=== PATIENT | female | born 1970 | race American Indian/Alaskan Native ===

== ENCOUNTER 2021-04-14 10:49 | Observation (INO) | payer BC ==
[2021-04-14 13:45] LABS: Basophils # (Auto) 0.1 K/mm3 (0.0-0.1); Basophils % (Auto) 2.1 % (0.0-1.8); Eosinophils # (Auto) 0.2 K/mm3 (0.0-0.4); Eosinophils % (Auto) 3.1 % (0.0-4.3); Lymphocytes # (Auto) 2.2 K/mm3 (1.2-5.4); Lymphocytes % (Auto) 43.6 % (13.4-35.0); Mean Corpuscular HGB Conc 28 % (30-34); Mean Corpuscular Volume 75 fl (79-97); Monocytes # (Auto) 0.5 K/mm3 (0.0-0.8); Monocytes % (Auto) 9.2 % (0.0-7.3); Platelet Count 313 K/mm3 (140-440); Red Blood Count 2.86 M/mm3 (3.65-5.03)
[2021-04-14 13:47] LABS: Hematocrit 21.3 % (30.3-42.9); Hemoglobin 6.1 gm/dl (10.1-14.3); Red Cell Distribution Width 21.4 % (13.2-15.2)
[2021-04-14 14:01] LABS: Albumin 4.2 g/dL (3.9-5); Blood Urea Nitrogen 8 mg/dL (7-17); Calcium 8.6 mg/dL (8.4-10.2); Hemolysis Index 4
[2021-04-14 14:04] LABS: Alanine Aminotransferase < 5 units/L (7-56); BUN/Creatinine Ratio 16
[2021-04-14] MEDS ORDERED: SODIUM CHLORIDE 0.9% 500 ML 500 ML IV ONE (17:34)
--- NOTE | 2021-04-14 17:48 | Emergency Department Report ---
ED General Adult HPI - General Chief complaint: Medical Clearance Stated complaint: BLOOD WORK Time Seen by Provider: 04/14/21 17:32 Source: patient Mode of arrival: Ambulatory Limitations: No Limitations - History of Present Illness Initial comments: Patient is a 50-year-old F [place] Citizen female who is presenting with paperwork from her doctor's office that her hemoglobin was low. Patient does have a history of heavy menses but is not bleeding at this time. Patient saw her doctor for dizziness. Blood work was done and she was called to come to the emergency department for blood transfusion. She denies any shortness of breath chest pain focal neurological deficits abdominal pain at this time. - Related Data Allergies Allergy/AdvReac Type Severity Reaction Status Date / Time No Known Allergies Allergy Unverified 04/14/21 10:55 ED Review of Systems ROS: Stated complaint: BLOOD WORK Other details as noted in HPI Comment: All other systems reviewed and negative ED Past Medical Hx - Past Medical History Previous Medical History?: No - Surgical History Past Surgical History?: Yes Additional Surgical History: TL, feet ED Physical Exam - General Limitations: No Limitations General appearance: alert, in no apparent distress - Head Head exam: Present: atraumatic, normocephalic - Eye Eye exam: Present: normal appearance, PERRL, EOMI - ENT ENT exam: Present: normal orophraynx, mucous membranes moist - Neck Neck exam: Present: normal inspection - Respiratory Respiratory exam: Present: normal lung sounds bilaterally. Absent: respiratory distress, wheezes, rales, rhonchi - Cardiovascular Cardiovascular Exam: Present: regular rate, normal rhythm, normal heart sounds. Absent: systolic murmur, diastolic murmur, rubs, gallop - GI/Abdominal GI/Abdominal exam: Present: soft, normal bowel sounds. Absent: distended, tenderness, guarding, rebound - Extremities Exam Extremities exam: Present: normal inspection - Back Exam Back exam: Present: normal inspection - Neurological Exam Neurological exam: Present: alert, oriented X3 - Psychiatric Psychiatric exam: Present: normal affect, normal mood - Skin Skin exam: Present: warm, dry, intact, normal color. Absent: rash ED Course Vital Signs 04/14/21 10:56 Pulse Rate 68 Respiratory 18 Rate Blood Pressure 105/51 O2 Sat by Pulse 100 Oximetry ED Medical Decision Making - Lab Data Result diagrams: 04/14/21 13:04 04/14/21 13:04 - Medical Decision Making Patient is a 50-year-old F [place] Citizen female who is presenting from her primary care physician for need for blood transfusion. Patient's symptoms anemia just dizziness for the last several days. Has a history of heavy menses but not having any bleeding at this time. Patient be admitted for observation and will be transfused. Critical Care Time: Yes (30) Critical care attestation.: If time is entered above; I have spent that time in minutes in the direct care of this critically ill patient, excluding procedure time. ED Disposition Clinical Impression: Symptomatic anemia Disposition: OP ADMIT IP TO THIS HOSP Is pt being admited?: Yes Does the pt Need Aspirin: No Condition: Stable Time of Disposition: 17:48
[2021-04-14] MEDS ORDERED: ACETAMINOPHEN 325 MG TAB PO PRN (19:17)
[2021-04-14] MEDS ORDERED: ALBUTEROL 2.5 MG/3 ML NEBU IH PRN (19:17)
[2021-04-14] MEDS ORDERED: oxyCODONE /ACETAMINOPHEN 5-325MG TAB PO PRN (19:17)
[2021-04-14] MEDS ORDERED: HYDROmorphone 1 MG/1 ML INJ IV PRN (19:17)
[2021-04-14] MEDS ORDERED: ONDANSETRON 4 MG/2 ML INJ IV PRN (19:17)
[2021-04-14] MEDS ORDERED: SODIUM CHLORIDE 0.9% 500 ML 500 ML IV NR (19:18)
--- NOTE | 2021-04-14 19:20 | History and Physical Report ---
History of Present Illness Chief complaint: My blood level is low History of present illness: 50 YO Female with Menorrhagia presents to ED for evaluation. Patient reports "my blood level is low". Patient states that she has experienced generalized weakness, dizziness over the past 1 month with persistent symptoms over the same timeframe. Patient was seen and evaluated by her primary care physician and was found to have a hemoglobin of 6. Patient was instructed to seek further care at [facility]. Patient transported to [facility] via private vehicle for further care and evaluation of the aforementioned symptoms. The patient was seen and evaluated in the emergency department. All lab and imaging studies reviewed. Patient found to have him symptomatic anemia secondary to menorrhagia. Patient placed in observation status and admitted to medical floor. Patient treated with packed red blood cell transfusion as well as initiation of iron therapy. Patient denies fever, chills, chest pain, pal pitation, productive cough, skin rash, recent ill contacts, or known exposure to COVID-19. No prior admission for review. No medication listed at time of admission reconciliation. Past History Past Medical History: other (See HPI) Past Surgical History: Other (TL, feet) Social history: single. denies: smoking, alcohol abuse, prescription drug abuse Family history: hypertension Medications and Allergies Allergies Allergy/AdvReac Type Severity Reaction Status Date / Time No Known Allergies Allergy Verified 04/14/21 18:22 Home Medications Medication Instructions Recorded Confirmed Last Taken Type Azo Cranberry 1,000 mg PO DAILY 04/14/21 04/14/21 2 Days Ago History ~04/12/21 Vitamin B-12 1,000 mcg PO DAILY 04/14/21 04/14/21 2 Days Ago History ~04/12/21 Active Meds: Active Medications Acetaminophen (Acetaminophen 325 Mg Tab) 650 mg PO Q4H PRN PRN Reason: Pain MILD(1-3)/Fever >100.5/MENCHACA Albuterol (Albuterol 2.5 Mg/3 Ml Nebu) 2.5 mg IH Q4HRT PRN PRN Reason: Shortness Of Breath Ferrous Sulfate (Ferrous Sulfate 325 Mg Tab) 325 mg PO BID TEVIN Hydromorphone HCl (Hydromorphone 1 Mg/1 Ml Inj) 0.5 mg IV Q12H PRN PRN Reason: Pain , Severe (7-10) Sodium Chloride (Nacl 0.9% 500 Ml) 500 mls @ 0 mls/hr IV ONCE ONE Stop: 04/14/21 19:19 Miscellaneous Medication (Azo Cranberry) 1,000 mg PO DAILY [facility] Miscellaneous Medication (Vitamin B-12) 1,000 mcg PO DAILY [facility] Ondansetron HCl (Ondansetron 4 Mg/2 Ml Inj) 4 mg IV Q8H PRN PRN Reason: Nausea And Vomiting Oxycodone/Acetaminophen (Oxycodone /Acetaminophen 5-325mg Tab) 1 tab PO Q12H PRN PRN Reason: Pain, Moderate (4-6) Sodium Chloride (Sodium Chloride 0.9% 10 Ml Flush Syringe) 10 ml IV BID TEVIN Sodium Chloride (Sodium Chloride 0.9% 10 Ml Flush Syringe) 10 ml IV PRN PRN PRN Reason: LINE FLUSH Review of Systems Constitutional: weakness, no fever, no chills Ears, nose, mouth and throat: no ear pain, no ear discharge, no decreased hearing, no nose pain, no nasal congestion, no nasal discharge Breasts: no change in shape, no swelling, no mass Cardiovascular: lightheadedness, no chest pain, no orthopnea, no edema, no syncope Respiratory: no cough, no hemoptysis, no shortness of breath, no dyspnea on exertion Gastrointestinal: no abdominal pain, no nausea, no vomiting, no diarrhea, no constipation Genitourinary Female: menorrhagia, no pelvic pain, no flank pain, no dysuria, no urgency Rectal: no pain, no incontinence, no bleeding Musculoskeletal: no neck stiffness, no neck pain, no shooting arm pain, no arm numbness/tingling, no low back pain, no shooting leg pain, no leg numbness/tingling Integumentary: no rash, no pruritis, no sores, no jaundice, no boils Neurological: no head injury, no paralysis, no weakness, no parathesias, no numbness, no tingling, no syncope Psychiatric: no anxiety, no memory loss, no sleep disturbances, no hypersomnia, no change in appetite Endocrine: no cold intolerance, no heat intolerance, no polydipsia, no nocturia Hematologic/Lymphatic: no easy bruising, no easy bleeding, no lymphedema Allergic/Immunologic: no wheezing, no persistent infections, no anaphylaxis, no angioedema Exam - Constitutional Vitals: Temp Pulse Resp BP Pulse Ox 59 L 13 100/54 100 04/14/21 19:15 04/14/21 19:15 04/14/21 19:15 04/14/21 19:15 General appearance: Present: mild distress - EENT Eyes: Present: PERRL ENT: hearing intact, clear oral mucosa, other (Conjunctival pallor) - Neck Neck: Present: supple, normal ROM - Respiratory Respiratory effort: normal Respiratory: bilateral: CTA - Cardiovascular Heart Sounds: Present: S1 & S2. Absent: rub, click - Extremities Extremities: pulses symmetrical, No edema Peripheral Pulses: within normal limits - Abdominal General gastrointestinal: Present: soft, non-tender, non-distended, normal bowel sounds Female genitourinary: Present: normal - Integumentary Integumentary: Present: clear, warm, dry - Musculoskeletal Musculoskeletal: gait normal, strength equal bilaterally - Psychiatric Psychiatric: appropriate mood/affect, intact judgment & insight - Neurologic Neurologic: CNII-XII intact, moves all extremities Results - Labs CBC & Chem 7: 04/14/21 13:04 04/14/21 13:04 Labs: Abnormal lab results 04/14/21 04/14/21 04/14/21 Range/Units 13:04 13:04 13:08 RBC 2.86 L (3.65-5.03) M/mm3 Hgb 6.1 L (10.1-14.3) gm/dl Hct 21.3 L (30.3-42.9) % MCV 75 L (79-97) fl MCH 21 L (28-32) pg MCHC 28 L (30-34) % RDW 21.4 H (13.2-15.2) % Lymph % (Auto) 43.6 H (13.4-35.0) % [place] % (Auto) 9.2 H (0.0-7.3) % Baso % (Auto) 2.1 H (0.0-1.8) % Creatinine 0.5 L (0.6-1.2) mg/dL ALT < 5 L (7-56) units/L Crossmatch See Detail Assessment and Plan - Patient Problems (1) Symptomatic anemia Current Visit: Yes Status: Acute Plan to address problem: Packed red blood cell transfusion, CBC, repeat CBC in a.m. (2) Menorrhagia Current Visit: Yes Status: Acute Qualifiers: Menorrhagia type: with regular cycle Qualified Code(s): N92.0 - Excessive and frequent menstruation with regular cycle Plan to address problem: Outpatient DIRECTOR PLANS follow-up, (3) DVT prophylaxis Current Visit: Yes Status: Acute Plan to address problem: SCD to bilateral lower extremities while in bed, patient is ambulatory.
[2021-04-14] MEDS: FERROUS SULFATE 325 MG TAB PO SCH (23:08)
[2021-04-15 06:43] LABS: Basophils % (Auto) 0.7 % (0.0-1.8); Eosinophils # (Auto) 0.2 K/mm3 (0.0-0.4); Eosinophils % (Auto) 2.9 % (0.0-4.3); Hematocrit 25.6 % (30.3-42.9); Hemoglobin 7.8 gm/dl (10.1-14.3); Lymphocytes # (Auto) 2.4 K/mm3 (1.2-5.4); Lymphocytes % (Auto) 37.6 % (13.4-35.0); Mean Corpuscular HGB Conc 31 % (30-34); Mean Corpuscular Volume 78 fl (79-97); Monocytes # (Auto) 0.6 K/mm3 (0.0-0.8); Monocytes % (Auto) 8.8 % (0.0-7.3); Platelet Count 275 K/mm3 (140-440)
[2021-04-15 06:44] LABS: Red Cell Distribution Width 21.1 % (13.2-15.2)
--- NOTE | 2021-04-15 08:06 | Discharge Summary ---
Providers - Providers Date of Admission: 04/14/21 19:17 Attending physician: ANN NEVES MD Primary care physician: MARGE VELÁSQUEZ Hospitalization Reason for admission: ANEMIA Condition: Stable Hospital course: 50 YO Female with Menorrhagia presents to ED for evaluation. Patient reports "my blood level is low". Patient states that she has experienced generalized weakness, dizziness over the past 1 month with persistent symptoms over the same timeframe. Patient was seen and evaluated by her primary care physician and was found to have a hemoglobin of 6. Patient was instructed to seek further care at [facility]. Patient transported to [facility] via private vehicle for further care and evaluation of the aforementioned symptoms. The patient was see n and evaluated in the emergency department. All lab and imaging studies reviewed. Patient found to have him symptomatic anemia secondary to menorrhagia. Patient placed in observation status and admitted to medical floor. Patient treated with packed red blood cell transfusion as well as initiation of iron therapy. Patient denies fever, chills, chest pain, palpitation, productive cough, skin rash, recent ill contacts, or known exposure to COVID-19. No prior admission for review. No medication listed at time of admission reconciliation. Patient seen and examined, tolerated transfusion and will follow with [employer]NAGER [employer] (1) Symptomatic anemia (2) Menorrhagia Disposition: DC- TO HOME OR SELFCARE Final Discharge Diagnosis (Prints w/discharge instructions): SYMPTOMATIC ANEMIA Time spent for discharge: 35 MINS Core Measure Documentation - Palliative Care Palliative Care/ Comfort Measures: Not Applicable - Core Measures Any of the following diagnoses?: none Exam - Constitutional Vitals: Temp Pulse Resp BP Pulse Ox 98.5 F 56 L 17 108/56 100 04/15/21 02:32 04/15/21 02:32 04/15/21 02:32 04/15/21 02:32 04/15/21 02:32 Plan Activity: advance as tolerated, fall precautions Diet: low fat Special Instructions: record daily weights, record daily BP diary Plan of Treatment: please follow with your MANAGER [employer] or as recommended below Follow up with: MARGE VELÁSQUZE MD [Primary Care Provider] - 3-5 Days ANA LYNN MD [Staff Physician] - 7 Days Prescriptions: Ferrous Sulfate [Feosol 325 MG tab] 325 mg PO BID #90 tablet Cyanocobalamin [Vitamin B-12] 1,000 mcg PO QDAY #30 tablet
[2021-04-15] MEDS ORDERED: AZO CRANBERRY PO SCH (10:00)
[2021-04-15] MEDS ORDERED: CYANOCOBALAMIN (VIT B-12) 1000 MCG TAB PO SCH (10:00)
[2021-04-15] MEDS ORDERED: VITAMIN B12 1000 MCG PO SCH (10:00)
[2021-04-15] MEDS: FERROUS SULFATE 325 MG TAB PO SCH (10:41)
[2021-04-15 10:56] VITALS: BP 108/60
== END 2021-04-15 12:19 | disposition home or self-care (01) ==
LOC: ED 10:49 → 3A 19:17 → 3B-SURG 21:32
PROVIDERS: ADMIT Internal Medicine; ATTEND Internal Medicine
DX: D64.9 Anemia, unspecified (principal); N92.0 Excessive and frequent menstruation with regular cycle; Z98.51 Tubal ligation status
CPT/HCPCS: 36415; 36430; 80053; 84703; 85025; 86850; 86900; 86901; 86920; 96360; 96361; 99291; G0378; J7040; P9016